=== PATIENT | female | born 1960 | race Hispanic/Latino ===

== ENCOUNTER → 2017-08-12 | Outpatient (CLI) | payer OTHER ==
[~2017-08-12] MED LIST: METOPROLOL SUCC50 MG PO
--- NOTE | 2017-08-24 08:25 | Diagnostic Imaging Report ---
#[id number] - MGSCRBIL #BILATERAL FIRST EVER DIGITAL SCREENING MAMMOGRAM WITH CAD: 08/12/2017 CLINICAL: Routine screening. Baseline exam. No prior exams were available for comparison. Current study contains 6 films. There are scattered fibroglandular elements in both breasts. Current study was also evaluated with a Computer Aided Detection (CAD) system. There are benign calcifications in both breasts. No significant masses, calcifications, or other findings are seen in either breast. IMPRESSION: BENIGN There is no mammographic evidence of malignancy. A 1 year screening mammogram is recommended. The patient will be notified by letter of the results. Dov [place]y reyes/feliberto:08/23/2017 12:35:04 [place] Supervisor: Leann WOLF)(M), [facility] letter sent: Normal Exam Mammogram BI-RADS: 2 Benign
== END ==
LOC: MAMMO 10:20
PROVIDERS: ATTEND Internal Medicine
DX: Z12.31 Encounter for screening mammogram for malignant neoplasm of breast (principal)
CPT/HCPCS: 77067

== ENCOUNTER → 2017-09-08 | Outpatient (CLI) | payer OTHER ==
--- NOTE | 2017-09-08 10:23 | Diagnostic Imaging Report ---
PROCEDURE: X-RAY CHEST, TWO VIEWS COMPARISON: None. INDICATIONS: COUGH FINDINGS: LUNGS: No consolidations or edema. PLEURA: No effusions or pneumothorax. HEART \T\ MEDIASTINUM: The heart is within normal size-limits. BONES \T\ SOFT TISSUES: No acute findings. CONCLUSION: No acute thoracic abnormality. Dov Harrington D.O. Dictated by: Dov Harrington D.O. on 09/08/2017 at 10:23 Electronically approved by: Dov Harrington D.O. on 09/08/2017 at 10:23
--- NOTE | 2017-09-08 10:57 | Diagnostic Imaging Report ---
PROCEDURE:X-RAY PARANASAL SINUSES, LIMITED COMPARISON:None. INDICATIONS:SINUS PAIN/PRESSURE FINDINGS: The paranasal sinuses are clear. No fluid levels are identified. No expansile or destructive osseous lesions are seen. No evidence of fracture. CONCLUSION: No radiographic evidence sinusitis. Dov Harrington D.O. Dictated by: Dov Harrington D.O. on 09/08/2017 at 10:57 Electronically approved by: Dov Harrington D.O. on 09/08/2017 at 10:57
== END ==
LOC: RAD 09:10
PROVIDERS: ATTEND Internal Medicine
DX: R05 Cough (principal)
CPT/HCPCS: 70210; 71046

== ENCOUNTER → 2017-12-01 | Outpatient (CLI) | payer OTHER ==
--- NOTE | 2017-12-01 10:48 | Diagnostic Imaging Report ---
PROCEDURE:HAND RIGHT 3 VIEWS AP \T\ LAT COMPARISON:None. INDICATIONS:JOINT PAIN FINDINGS: No acute, displaced fracture or dislocation. Joint spaces are well-maintained. Soft tissues are unremarkable. CONCLUSION: Unremarkable right hand radiographs. Dictated by: Jonh Magdaleno M.D. on 12/01/2017 at 10:50 Electronically approved by: Jonh Magdaleno M.D. on 12/01/2017 at 10:50
== END ==
LOC: RAD 09:36
PROVIDERS: ATTEND Internal Medicine
DX: M25.541 Pain in joints of right hand (principal); M06.9 Rheumatoid arthritis, unspecified

== ENCOUNTER 2018-07-29 18:36 | Inpatient (IN) | payer OTHER ==
[~2018-07-29] VITALS: Ht 152.4 cm; Wt 83.3 kg
--- OUTSIDE RECORDS SUMMARY | 2018-07-29 18:38 | XMS REPORT ---
Author Author [facility] Address Unknown Phone Unavailable Care Team Providers Care Interventional Radiology Technologist Name Role Phone SAMANTHA KAUR Unavailable Unavailable Problems This patient has no known problems. Allergies, Adverse Reactions, Alerts This patient has no known allergies or adverse reactions. Medications This patient has no known medications. Results Test Description Test Time Test Comments Text Results Atomic Results Result Comments HAND 3+ VIEWS RIGHT [place] [address] Patient Name: HEIDI BOWLES MR #: [id number] : 1960 Age/Sex: 57/F Req #: [id number] [facility] Physician: Ordered by: SAMANTHA KAUR MD Report #: [id number] Location: [facility] Room/Bed: Procedure: [id number] DX/HAND 3+ VIEWS RIGHT Exam Date: 12/01/17 Exam Time: 0950 REPORT STATUS: Signed PROCEDURE: HAND RIGHT 3 VIEWS AP T LAT COMPARISON: None. INDICATIONS: JOINT PAIN FINDINGS: No acute, displaced fracture or dislocation. Joint spaces are well-maintained. Soft tissues are unremarkable. CONCLUSION: Unremarkable right hand radiographs. Dictated by: Hyun Uriostegui M.D. on 12/01/2017 at 10:50 Electronically approved by: Hyun Uriostegui M.D. on 12/01/2017 at 10:50 Dictated By: HYUN URIOSTEGUI MD 1050 Transcribed By: JOHANA on 12/01/17 105 COPY TO: SAMANTHA KAUR MD CHEST 2 VIEWS [place] [address] Patient Name: HEIDI BOWLES MR #: [id number] : 1960 Age/Sex: 57/F Req #: [id number] Adm Physician: Ordered by: SAMANTHA KAUR MD Report #: [id number] Location: [facility] Room/Bed: Procedure: [id number] DX/CHEST 2 VIEWS Exam Date: 09/08/17 Exam Time: 0940 REPORT STATUS: Signed PROCEDURE: X-RAY CHEST, TWO VIEWS COMPARISON: None. INDICATIONS: COUGH FINDINGS: LUNGS: No consolidations or edema. PLEURA: No effusions or pneumothorax. HEART T MEDIASTINUM: The heart is within normal size-limits. BONES T SOFT TISSUES: No acute findings. CONCLUSION: No acute thoracic abnormality. Zulay Harrington D.O. Dictated by: Zulay Harrington D.O. on 09/08/2017 at 10:23 Electronically approved by: Zulay Harrington D.O. on 09/08/2017 at 10:23 Dictated By: ZULAY HARRINGTON DO 1023 Transcribed By: JOHANA on 09/08/17 1023 COPY TO: SAMANTHA KAUR MD SINUSES (PARANASAL)<3 VIEWS [place] [address] Patient Name: HEIDI BOWLES MR #: [id number] : 1960 Age/Sex: 57/F Req #: [id number] Adm Physician: Ordered by: SAMANTHA KAUR MD Report #: [id number] Location: RAD Room/Bed: Procedure: [id number] DX/SINUSES (PARANASAL)<3 VIEWS Exam Date: 09/08/17 Exam Time: 939 REPORT STATUS: Signed PROCEDURE: X-RAY PARANASAL SINUSES, LIMITED COMPARISON: None. INDICATIONS: SINUS PAIN/PRESSURE FINDINGS: The paranasal sinuses are clear. No fluid levels are identified. No expansile or destructive osseous lesions are seen. No evidence of fracture. CONCLUSION: No radiographic evidence sinusitis. Zulay Harrington D.O. Dictated by: Zulay Harrington D.O. on 09/08/2017 at 10:57 Electronically approved by: Zulay Harrington D.O. on 09/08/2017 at 10:57 Dictated By: ZULAY HARRINGTON DO 56 Transcribed By: JOHANA on 09/08/17 1057 COPY TO: SAMANTHA KAUR MD MAMMOGRAPHY DIGITAL SCR [place] [address] Patient Name: HEIDI AZUL MR #: [id number] : 1960 Age/Sex: 57/F Req #: [id number] Adm Physician: Ordered by: SAMANTHA KAUR MD Report #: [id number] Location: MAMMO Room/Bed: Procedure: [id number] MG/MAMMOGRAPHY DIGITAL SCR BILAT Exam Date: 08/12/17 Exam Time: 1055 REPORT STATUS: Signed #[id number] - MGSCRBIL #BILATERAL FIRST EVER DIGITAL SCREENING MAMMOGRAM WITH CAD: 08/12/2017 CLINICAL: Routine screening. Baseline exam. No prior exams were available for comparison. Current study contains 6 films. There are scattered fibroglandular elements in both breasts. Current study was also evaluated with a Computer Aided Detection (CAD) system. There are benign calcifications in both breasts. No significant masses, calcifications, or other findings are seen in either breast. IMPRESSION: BENIGN There is no mammographic evidence of malignancy. A 1 year screening mammogram is recommended. The patient will be notified by letter of the results. Zulay reyes/rolando:08/23/2017 12:35:04 Astronomy Department Chair: Leann LINDSAY([place])(M), [facility] letter sent: Normal Exam Mammogram BI-RADS: 2 Benign Dictated By: ZULAY HARRINGTON DO 1235 Transcribed By: ROLANDO on 08/23/17 1235 COPY TO: SAMANTHA KAUR MD
[2018-07-29] MEDS ORDERED: SODIUM CHLORIDE 0.9% 1000ML 1,000 ML IV STA (19:55)
[2018-07-29] MEDS ORDERED: ASPIRIN 81 MG CHEW TAB PO ONE (20:00)
[2018-07-29] MEDS ORDERED: ACETAMINOPHEN 1000 MG/100 ML IV ONE (20:53)
[2018-07-29 21:21] LABS: BILIRUBIN,URINE NEGATIVE (NEGATIVE); CLARITY,URINE SL CLOUDY (CLEAR); COLOR,URINE YELLOW (YELLOW); KETONES,URINE 1+ (NEGATIVE); LEUKOCYTE ESTERASE ,URINE NEGATIVE (NEGATIVE); NITRITE,URINE NEGATIVE (NEGATIVE); PROTEIN,URINE DIPSTICK TRACE (NEGATIVE); URINE UROBILINOGEN 1 mg/dL (0.2 - 1)
[2018-07-29 21:27] LABS: AMORPHOUS SEDIMENT,URINE FEW (FEW); BACTERIA,URINE MODERATE /HPF; EPITHELIAL CELLS,URINE MODERATE /LPF; MUCUS,URINE FEW (RARE); WBC,URINE (MAN) 0-5 /HPF (0-5)
--- NOTE | 2018-07-29 21:28 | Diagnostic Imaging Report ---
EXAM: CHEST SINGLE (PORTABLE), AP 1 view INDICATION: Pain from leg up to chest and head COMPARISON: None FINDINGS: LINES/TUBES: None LUNGS: No consolidations or edema. PLEURA: No effusions or pneumothorax. HEART AND MEDIASTINUM: Normal size and contour. BONES AND SOFT TISSUES: No acute findings. IMPRESSION: No acute thoracic abnormality. Signed by: Dr. No Dang M.D. on 07/29/2018 9:25 PM
[2018-07-29 21:44] LABS: STREPTOCOCCUS GRP A ANTIGEN NEGATIVE (NEGATIVE)
[2018-07-29 22:03] LABS: BASOPHILS % 0.3 % (0.0-1.0); EOSINOPHILS % 0.5 % (0.0-6.0); HEMATOCRIT 35.1 % (34.2-44.1); HEMOGLOBIN 11.6 g/dL (12.0-16.0); LYMPHOCYTES # (AUTO) 1.6 (1.0-3.2); LYMPHOCYTES % 21.3 % (18.0-39.1); MEAN CORPUSCULAR HEMOGLOBIN 28.4 pg (28-32); MONOCYTES # (AUTO) 0.6 (0.2-0.8); MONOCYTES % 7.6 % (4.4-11.3); NEUTROPHILS % 66.3 % (38.7-80.0); PLATELET COUNT 209 x10e3/uL (140-360); RED BLOOD COUNT 4.08 x10e6/uL (3.6-5.1); RED CELL DISTRIBUTION WIDTH 13.9 % (11.7-14.4)
[2018-07-29 22:09] LABS: INR 1.03; PROTHROMBIN TIME 14.4 seconds (11.9-14.5)
[2018-07-29 22:10] LABS: PARTIAL THROMBOPLASTIN TIME 34.8 seconds (23.8-35.5)
[2018-07-29 22:13] LABS: INFLUENZAE A&B ANTIGEN (RAPID) NEGATIVE (NEGATIVE)
[2018-07-29 22:19] LABS: ALANINE AMINOTRANSFERASE 21 IU/L (0-55); ALBUMIN/GLOBULIN RATIO 0.8 (0.8-2.0); ALKALINE PHOSPHATASE 70 IU/L (40-150); ANION GAP 13.8 mmol/L (8-16); BLOOD UREA NITROGEN 10 mg/dL (7-26); BUN/CREATININE RATIO 17 (6-25); CALCIUM 8.7 mg/dL (8.4-10.2); CARBON DIOXIDE 23 mmol/L (22-29); CHLORIDE 100 mmol/L (98-107); CREATINE KINASE 23 IU/L (29-168); CREATININE, SERUM 0.59 mg/dL (0.57-1.11); EST GLOMERULAR FILTRATION RATE > 60 ML/MIN (60-); GLUCOSE 110 mg/dL (74-118); MAGNESIUM 1.6 MG/DL (1.3-2.1); POTASSIUM 3.8 mmol/L (3.5-5.1); SODIUM 133 mmol/L (136-145)
[2018-07-29 22:31] LABS: BAND NEUTROPHILS % (MANUAL) 1 %; LYMPHOCYTES % (MANUAL) 16 % (19-48); MONOCYTES % (MANUAL) 8 % (3.4-9.0); NEUTROPHILS % (MANUAL) 73 % (40-74)
[2018-07-29 22:32] LABS: PLATELET ESTIMATE ADEQUATE; PLATELET MORPHOLOGY COMMENT NORMAL; RBC MORPHOLOGY COMMENT NORMAL
--- NOTE | 2018-07-29 23:35 | Diagnostic Imaging Report ---
EXAMINATION: Head CT without contrast. HISTORY:Headache and dizziness. COMPARISON:None. TECHNIQUE: Multidetector axial images were obtained from the foramen magnum to the vertex without contrast. The images were reconstructed using brain and bone algorithms. Thin section brain images were reformatted into coronal and sagittal planes. Dose modulation, iterative reconstruction, and/or weight based adjustment of the mA/kV was utilized to reduce the radiation dose to as low as reasonably achievable. Intravenous contrast: None IMAGE QUALITY: Acceptable. FINDINGS: Skull/scalp: No lytic or blastic. lesions. No surgical changes. Parenchyma: Nonspecific bilateral frontoparietal patchy white matter hypodensity are likely related to small vessel ischemic changes. No acute hemorrhage, mass or acute major vascular territorial infarct. Arteries: No density suggestive of thrombosis. Dural sinuses: No abnormal density suggestive of thrombosis. Ventricles: No hydrocephalus or displacement. Extra-axial spaces: No abnormal density. Brain volume: Normal for age. Craniocervical junction: No mass, Chiari malformation, or basilar invagination. Sella: No mass. Paranasal/mastoid sinuses: Imaged portions unremarkable. IMPRESSION: No acute intracranial abnormality. Moderate supratentorial white matter microvascular ischemic changes. Signed by: Dr. Lyla Morgan M.D. on 07/29/2018 11:31 PM
[2018-07-30] VITALS (7 sets, daily range): BP systolic 128–169; BP diastolic 63–93
--- NOTE | 2018-07-30 00:02 | Diagnostic Imaging Report ---
EXAM: CTA ABD/PELVIS, CTA CHEST INDICATION: Left leg and hip pain that radiates to her left flank and left side of chest and head COMPARISON: None TECHNIQUE: Multi-detector CT technology was employed using low dose techniques. CTA of the chest, abdominal and pelvis was performed after the administration of IV contrast. For optimization of anatomic evaluation, multiplanar reconstruction 3-D off-line postprocessing were performed. IV Contrast: 100 cc SMV 370 Oral Contrast: None Findings: Chest: The lungs are clear. No pleural effusions or pneumothorax. The heart is within normal size limits. Calcifications versus valve replacement around the mitral valve. No mediastinal mass or lymphadenopathy. Abdomen: Normal appearance of the liver, gallbladder, pancreas, spleen, adrenal glands and kidneys. Small hiatal hernia. Normal appearance of the small and large bowel. Respiratory artifact across the mid abdomen. Pelvis: The bladder is decompressed by a Johnson catheter. The uterus and ovaries are not visualized. Soft tissues and bones: Bilateral buttock injection sites. No acute bone findings. Vessels: Mild calcified atherosclerotic plaque of the thoracic aortic arch. No aortic dissection flap or aneurysm. Mild atherosclerotic plaque of the abdominal aorta. The celiac, superior mesenteric artery, bilateral single renal arteries and inferior mesenteric artery are patent without significant stenosis. Normal pelvic vasculature. IMPRESSION: Normal CTA of the chest, abdomen and pelvis. No aortic aneurysm or dissection. Signed by: Dr. No Dang M.D. on 07/29/2018 11:59 PM
[2018-07-30] MEDS ORDERED: ONDANSETRON HCL INJ 2MG/ML 2ML 2 MG/ML VIAL IV STA (00:22)
[2018-07-30] MEDS ORDERED: KETOROLAC TROMETHAMINE 30 MG/ML VIAL IV STA (00:29)
[2018-07-30] MEDS ORDERED: SODIUM CHLORIDE 0.9% 1000ML 1,000 ML IV STA (00:29)
--- NOTE | 2018-07-30 00:58 | Diagnostic Imaging Report ---
EXAM: KNEE LEFT THREE VIEWS, AP, lateral and oblique INDICATION: Left knee pain COMPARISON: None FINDINGS: BONES: No acute fractures. JOINTS: No malalignment. SOFT TISSUES: Large suprapatellar joint effusion. IMPRESSION: Large suprapatellar joint effusion without evidence of fracture. Signed by: Dr. No Dang M.D. on 07/30/2018 12:54 AM
[2018-07-30] MEDS ORDERED: KETOROLAC TROMETHAMINE 30 MG/ML VIAL ONE (00:59)
[2018-07-30] MEDS ORDERED: ONDANSETRON HCL INJ 2MG/ML 2ML 2 MG/ML VIAL ONE (00:59)
[2018-07-30] MEDS ORDERED: SODIUM CHLORIDE 0.9% 100 ML 100 ML ONE (01:56)
[2018-07-30] MEDS ORDERED: IOPAMIDOL 370 MG/ML 200 ML INFUS..BTL INJ ONE (01:56)
[2018-07-30] MEDS ORDERED: ONDANSETRON HCL INJ 2MG/ML 2ML 2 MG/ML VIAL IV PRN (02:15)
[2018-07-30] MEDS ORDERED: PANTOPRAZOLE SO40 MG PO (03:16)
[2018-07-30] MEDS ORDERED: SUCRALFATE1 GM PO (03:16)
[2018-07-30] MEDS ORDERED: CRESTOR10 MG PO (03:16)
--- NOTE | 2018-07-30 03:48 | NUR ---
Received report from ER nurse. Patient arrived to floor via stretcher. Patient telugu speakingwith daughter at bedside to translate.
[2018-07-30] MEDS: SODIUM CHLORIDE 0.9% 1000ML 1,000 ML IV SCH ×4 (04:30→22:12)
[2018-07-30] MEDS: HYDROCODONE/APAP 5MG-325MG TAB PO PRN ×3 (04:55→17:19)
--- NOTE | 2018-07-30 06:00 | NUR ---
Patient admit and assessment completed.
[2018-07-30 07:42] LABS: CREATINE KINASE MB 0.4 ng/mL (0-5.0)
--- NOTE | 2018-07-30 08:40 | NUR ---
SPOKE WITH MD MENDOZA, AWARE OF CONSULT, ORDERS NOTED
--- NOTE | 2018-07-30 09:31 | NUR ---
MD MAC'S EMPLOYMENT COORDINATOR ALONDRA INTO SEE PT, DISCUSSED POC
--- NOTE | 2018-07-30 12:13 | NUR ---
CONSULTATION - ORTHOPEDICS Mireille is a 58 year old indonesian speaking community ambulating female who presented to the ED with complaints of myalgias, chest pain and left knee pain that started yesterday without incident of trauma. She states she has had fevers since her pain. She denies any numbness, paresthesias or loss of distal motor function. She states the pain is globally around the knee and has been unable to move it and ambulate on it. No prior history of any trauma or injuries to the knee. 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 Motor+ EHL, FHL, TA, G/S Sensation grossly intact Pulses + DP, Post tib Compartments soft Negative calf tenderness WBC 7.47, Hgb 11.6 Hct 35.1, Plt 209 INR 1.03 D-Dimer 0.47 ESR 62 Xrays demonstrate 3 views of the left knee with no fracture, dislocation, or significant degenerative changes. Is a round ossification at the distal patella r tendon region 58 year old female with left knee effusion, pain and subjective fevers Due to the concern for a septic knee, the left knee was cleaned and prepped for an aspiration after consent was obtained. The left knee was aspirated and provided 70 cc of synovial-sanginous fluid. No gross purulence. The patient felt improved pain. A compressive dressing was applied. Fluid sent for cell count with differential, crystals, culture, gram stain and glucose. Patient tolerated the procedure well. Follow up aspiration labs Analgesics as needed NPO except meds Hold anticoaguation/DVT prophylaxis If lab come back positive for septic knee, will required I&D Follow up read on DVT Ultrasound FU CRP Patient and family aware and amendable to plan. All questions answered. DO S[facility]
[2018-07-30 12:53] LABS: BODY FLUID APPEARANCE SL.CLOUDY; BODY FLUID COLOR YELLOW; BODY FLUID TYPE SYNOVIAL
[2018-07-30 12:57] LABS: RBC,BODY FLUID 3841 cells/uL; WBC,BODY FLUID 3287 cells/uL
[2018-07-30 13:05] LABS: LYMPHOCYTES,BODY FLUID 20 %; MONO/MACROPHG,BODY FLUID 14 %; NEUTROPHILS,BODY FLUID 66 %
--- NOTE | 2018-07-30 13:26 | NUR ---
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 CM/SW role and care transitions discussed. Anticipated discharge plan discussed along with duration of care. CM/SW discussed patients right to make decisions in care. CM/SW work hours given. Patient lives: IN OWN HOUSE WITH FAMILY Admit/Transfer: VIA ED FROM HOME POA/Emergency contact: DAUGHTER CLAYTON [phone] Current/Previous Home Health: NONE PCP/Follow-up Care: Abigail POE Current/Previous DME:NONE Other Services: NONE Employment Status: RETIRED Areas of Concerns: NONE Referral Needs: NONE Education Needs: NONE IMM/ORTIZ given and signed (if applicable): NA Goal for discharge: RETURN HOME CM/SW left business card at the bedside with contact information. Name and number was also written on the patients whiteboard. Patient verbalized understanding of discussion. CM will follow-up with ongoing discharge and transition of care needs.
--- NOTE | 2018-07-30 14:22 | NUR ---
PROGRESS NOTE - Orthopedics Upon further questioning, patient states that she recently had the flu two weeks ago. Left knee feeling much better after aspiration Left Knee Able to flex knee to 80 degrees, pain with forced extension Lateral > Medial joint line tenderness Positive Chelsey Negative Varus/Valgus Stress Test at full extension at 30 deg of flexion, non-painful Aspiration values WBC 3287, Neutrophils 66%, Fluid glucose 63 58 year old F with left knee pain and effusion Follow up MRI of left knee to evaluate for meniscal tear At this time, there is a mixed picture regarding her knee. The knee effusion could be secondary to inflammatory arthropathy over infectious. As long as she remains stable, we will continue to wait for gram stain, culture and crystals Follow up CRP Follow up CBC in am DO S[facility]NEY [facility]
[2018-07-30] MEDS ORDERED: METHYLPREDNISOLONE SOD SUCC 40 MG/ML VIAL 1ML IV ONE (15:30)
[2018-07-30 16:09] LABS: CREATINE KINASE 14 IU/L (29-168)
[2018-07-30] MEDS ORDERED: SODIUM CHLORIDE 0.9% 250ML 250 ML ONE (16:46)
--- NOTE | 2018-07-30 16:58 | Diagnostic Imaging Report ---
TECHNIQUE: Magnetic resonance imaging of the LEFT KNEE was performed WITHOUT injected contrast. HISTORY: Pain, fever, additional history provided of aspiration earlier today. COMPARISON: Left knee radiograph July 30, 2018 FINDINGS: LIGAMENTS AND TENDONS: ACL: Intact PCL: Intact Collateral ligaments: Intact Iliotibial band: Unremarkable Popliteal tendon: Intact Extensor mechanism: Intact JOINT: Menisci: Medial: Intact Lateral: Intact Articular Cartilage: Medial Compartment: Low-grade erosion of the weightbearing cartilage. Lateral Compartment: No focal defect. Patellofemoral Compartment: High-grade to full-thickness erosions at the patellar apex and adjacent lateral facet. Joint Fluid: Moderate nonspecific joint effusion with synovitis and a partially distended Castelan's cyst. Fluid extending from the Castelan cyst inferiorly along the superior margin of the medial head of the gastrocnemius. BONES: No focal or infiltrative bone marrow replacing abnormality. No acute fracture. SOFT TISSUES: Periarticular soft tissue edema. No abscess. IMPRESSION: 1. A nonspecific arthritis, consider septic arthropathy in the provided setting of fever or crystalline arthropathy, especially CPPD. Advise correlation with result of the recent knee aspiration. 2. Ruptured and partially decompressed Castelan's cyst. 3. Patellofemoral compartment predominant osteoarthrosis. Discussed with the patient's nurse (Jia Toth) via phone on July 30, 2017 at 1653. The provider verbalizes an understanding and states she will relay the information to Drs. Sood and Mauricio. Signed by: Dr. Bolivar Galeana D.O., M.M.M. on 07/30/2018 4:55 PM
[2018-07-30] MEDS ORDERED: COLCHICINE 0.6 MG TAB PO SCH (17:00)
[2018-07-30] MEDS: CEFTRIAXONE SOD 1 GM/NS 50 ML 50 ML IV SCH (17:00)
[2018-07-30] MEDS ORDERED: METHYLPREDNISOLONE SOD SUCC 40 MG/ML VIAL 1ML ONE (17:04)
[2018-07-30] MEDS: SUCRALFATE 1 GM TAB PO SCH (17:17)
--- NOTE | 2018-07-30 17:31 | NUR ---
SPOKE WITH MD ANA STEARNS RADIOLOGIST, STATES MRI RESULTS ARE INFECTION VS PSEUDOGOUT, TELEPHONED MD Ramin POE TO MAKE AWARE, SPOKE WITH ADOLFO , AWAITING CALL TRA
--- NOTE | 2018-07-30 17:34 | NUR ---
SPOKE WITH Ramin POE,
--- NOTE | 2018-07-30 17:36 | NUR ---
SPOKE WITH MD MENDOZA, MADE AWARE OF MRI RESULTS AND WHAT Ramin POE HAS ORDERED MEDICATION [place], MD MENDOZA OKAY WITH CURRENT ORDERS
--- NOTE | 2018-07-30 18:04 | History and Physical ---
HISTORY OF PRESENT ILLNESS: She is a 58-year-old female, patient of Dr. Bry Kang, presented to the emergency room with complaint of severe left-sided knee pain and patient had become completely un-ambulatory. Patient is not able to put weight and patient was having severe pain. Patient was in distress. She was having a chest pain and she was feeling she actually is going to passed out and has dizziness and shortness of breath. The patient had came to the emergency room with above complaint and patient has history of hypertension, but her blood pressure was low. Patient was short of breath and weak. REVIEW OF SYSTEMS: As per history of present illness. Patient has a more severe left knee pain, 04/20. PAST MEDICAL HISTORY: Hypertension, hyperlipidemia. ALLERGIES: NO KNOWN DRUG ALLERGIES. SOCIAL HISTORY: Denies smoking. Denies using alcohol. FAMILY HISTORY: Hypertension and hyperlipidemia. MEDICATIONS: See from the list. PHYSICAL EXAMINATION GENERAL: She is a middle-aged female patient, lying in bed, not in any acute distress. VITALS: Temperature 100.3, pulse rate 73, respiration rate 18, blood pressure 140/90. HEENT: Normocephalic and atraumatic. NECK: No JVD. No lymphadenopathy. LUNGS: Bilateral equal fair air entry. No rales. No rhonchi. NEUROLOGICAL: No focal neurological deficits. EXTREMITIES: Left knee severe swelling. ADMITTING IMPRESSION/DIAGNOSES: Left knee effusion suspect left knee septic arthritis with fever in syncopal patient. Patient has chest pain, dizziness, hypertension, hyperlipidemia, and also urinary tract infection. Orthopedic evaluation was done and arthrocentesis was done and 60 mL yellowish clear fluid was taken out. Patient is getting MRI of the right knee. Patient will be treated with IV antibiotic Rocephin and will give patient colchicine and IV steroid. PT/OT evaluation. Further treatment course as per MRI of the knee. Patient to be admitted under service of Dr. Kang. Job#: [id number] HEIDI
--- NOTE | 2018-07-30 18:54 | Consultation ---
DATE OF CONSULTATION: CARDIOLOGY CONSULTATION CONSULTING PHYSICIAN: Dr. Will Sood. REASON FOR CONSULTATION: Abnormal EKG. HISTORY OF PRESENT ILLNESS: Ms. Sanchez is a 58-year-old female that has been reported to have been in good health up until a couple days ago where she developed acute onset of left lower extremity pain and also swelling and was unable to walk. Yesterday for this reason, her family member brought her to the ER. She also reports some diarrhea prior to admission that had been ongoing for a couple of days. At this moment, she remains to have some pain in her left lower extremity and also the swelling persists and she is unable to still move or bend the leg at this point. She denies any chest pain, any shortness of breath, palpitations, dizziness, vertigo, dysuria, constipation, or abdominal pain. PAST MEDICAL HISTORY: Includes hypertension, hyperlipidemia, and fatty liver. PAST SURGICAL HISTORY: Partial hysterectomy. FAMILY HISTORY: Noncontributory. ALLERGIES: PER ELECTRONIC CHART. REVIEW OF SYSTEMS: Negative except as mentioned above. PHYSICAL EXAM VITAL SIGNS: Temperature 100.3, pulse 73, respiratory rate 18, blood pressure 144/92, oxygen saturation 99% on room air. GENERAL: Alert and oriented x3, resting comfortably in bed. Does not appear to be in any acute distress. NECK: Supple. No JVD noted. LUNGS: Clear to auscultation throughout. No wheezing. No rhonchi or crackles. CARDIOVASCULAR: Regular rate and rhythm. Normal S1 and S2. No murmurs. No gallops. ABDOMEN: Soft, nontender. Normoactive bowel sounds. EXTREMITIES: Left lower extremity around the knee is warm and tender to the touch. 2+ nonpitting edema to the left lower extremity. 2+ pedal pulses bilaterally. LABS: WBC 7.47, hemoglobin 11.6, platelets 209. Knee x-ray with a large suprapatellar joint effusion without evidence of any fracture. CT of the chest, abdomen and pelvis normal with no aortic aneurysm or dissection. CT of the brain with moderate supratentorial white matter microvascular ischemic changes. Chest x-ray with no acute thoracic abnormalities. TELEMETRY: Sinus rhythm. EKG on admission with ST elevation noted only on V2, nothing else noted on any other leads. IMPRESSION 1. Left knee effusion. 2. Knee pain. 3. Abnormal EKG. 4. Hypertension. 5. Hyperlipidemia. RECOMMENDATIONS: Maintain this patient on telemetry. Pain management per primary team. Obtain an echocardiogram today. This patient will need a stress test. This may be done as an outpatient. Patient with risks factors including age and also hypertension; however, cardiac enzymes at this time remains to the normal. Patient will may proceed with surgical intervention of the left knee at this point and we will schedule ischemic workup and a stress test as an outpatient. We will continue to follow this patient very closely. Thank you very much for this consultation. Dictated by: Lin Kern NP Job#: [id number] RTY
--- NOTE | 2018-07-30 19:43 | NUR ---
Received change of shift report from Am nurse. Walking rounds completed.
[2018-07-30] MEDS: COLCHICINE 0.6 MG TAB PO SCH (21:00)
[2018-07-31] VITALS (7 sets, daily range): BP systolic 136–177; BP diastolic 66–104
--- NOTE | 2018-07-31 | NUR ---
Patient c/o EISENBERG. Meds given as ordered.
--- NOTE | 2018-07-31 05:00 | NUR ---
Patient resting quitly with no c/o pain or discomfort. Continue monitor.
[2018-07-31] MEDS: ACETAMINOPHEN 325 MG TAB PO PRN (05:35)
[2018-07-31 06:16] LABS: BASOPHILS % 0.1 % (0.0-1.0); HEMATOCRIT 32.5 % (34.2-44.1); HEMOGLOBIN 10.7 g/dL (12.0-16.0); LYMPHOCYTES # (AUTO) 1.2 (1.0-3.2); LYMPHOCYTES % 15.8 % (18.0-39.1); MEAN CORPUSCULAR HEMOGLOBIN 28.2 pg (28-32); MEAN CORPUSCULAR HGB CONC 32.9 g/dL (31-35); MEAN CORPUSCULAR VOLUME 85.5 fL (81-99); MONOCYTES # (AUTO) 0.4 (0.2-0.8); MONOCYTES % 5.9 % (4.4-11.3); NEUTROPHILS # (AUTO) 5.4 (2.1-6.9); NEUTROPHILS % 72.8 % (38.7-80.0); PLATELET COUNT 218 x10e3/uL (140-360); RED CELL DISTRIBUTION WIDTH 13.9 % (11.7-14.4)
[2018-07-31 06:37] LABS: ALANINE AMINOTRANSFERASE 17 IU/L (0-55); ALBUMIN 2.5 g/dL (3.5-5.0); ALBUMIN/GLOBULIN RATIO 0.6 (0.8-2.0); ALKALINE PHOSPHATASE 62 IU/L (40-150); ANION GAP 10.7 mmol/L (8-16); BLOOD UREA NITROGEN 9 mg/dL (7-26); BUN/CREATININE RATIO 16 (6-25); CALCIUM 8.6 mg/dL (8.4-10.2); CARBON DIOXIDE 23 mmol/L (22-29); CHLORIDE 104 mmol/L (98-107); CREATININE, SERUM 0.58 mg/dL (0.57-1.11); EST GLOMERULAR FILTRATION RATE > 60 ML/MIN (60-); GLUCOSE 140 mg/dL (74-118); POTASSIUM 3.7 mmol/L (3.5-5.1); SODIUM 134 mmol/L (136-145)
[2018-07-31 06:48] LABS: CREATINE KINASE 15 IU/L (29-168)
[2018-07-31] MEDS: PANTOPRAZOLE SOD 40 MG TABEC PO SCH (08:30)
[2018-07-31 08:38] LABS: BAND NEUTROPHILS % (MANUAL) 2 %; LYMPHOCYTES % (MANUAL) 12 % (19-48); MONOCYTES % (MANUAL) 11 % (3.4-9.0); NEUTROPHILS % (MANUAL) 75 % (40-74); PLATELET ESTIMATE ADEQUATE; PLATELET MORPHOLOGY COMMENT NORMAL; RBC MORPHOLOGY COMMENT NORMAL
[2018-07-31] MEDS ORDERED: SIMVASTATIN 40 MG TAB PO SCH (09:00)
[2018-07-31] MEDS: METOPROLOL SUCCINATE 50 MG TAB XL PO SCH (10:00)
[2018-07-31] MEDS: SUCRALFATE 1 GM TAB PO SCH ×2 (10:00→17:00)
[2018-07-31] MEDS: COLCHICINE 0.6 MG TAB PO SCH ×2 (10:00→20:27)
[2018-07-31] MEDS: SODIUM CHLORIDE 0.9% 1000ML 1,000 ML IV SCH ×2 (10:13→15:00)
--- NOTE | 2018-07-31 11:39 | Progress Note ---
DATE: CARDIOLOGY PROGRESS NOTE SUBJECTIVE: Patient reports substernal chest pain this morning and also some occasional coughing. States that she is status post left knee joint effusion and fluid drainage with improvement of leg pain. Denies any palpitations or shortness of breath. OBJECTIVE VITAL SIGNS: Temperature 98.8, pulse 71, respiratory rate 19, blood pressure 137/71, oxygen saturation 97% on room air. GENERAL: Alert and oriented x3, resting comfortably in bed, daughter at the bedside. Does not appear to be in any acute distress. NECK: Supple. No JVD noted. LUNGS: Clear to auscultation throughout. No wheezing. No rhonchi or crackles. CARDIOVASCULAR: Regular rate and rhythm. Normal S1, S2. No murmurs. No gallops. ABDOMEN: Rounded, soft, nontender. Normoactive bowel sounds. LOWER EXTREMITIES: Left lower extremity knee with dressing and compression. Edema noted. 2+ pedal pulses bilaterally. CARDIOVASCULAR MEDICATIONS: Simvastatin 10 mg p.o. daily. LABS: WBC 7.42, hemoglobin 10.7, hematocrit 32.2, platelets 218. Sodium 134, potassium 3.7, BUN 9, creatinine 0.58, glucose 140, calcium 8.6. TELEMETRY: Sinus rhythm. IMPRESSION 1. Left knee effusion. 2. Knee pain. 3. Abnormal electrocardiogram with ST elevation noted on V2. 4. Hypertension. 5. Hyperlipidemia. 6. Atypical chest pain. RECOMMENDATIONS: Maintained this patient on telemetry. Lexiscan stress test. We will contact with hospital hopefully tomorrow. Obtain echocardiogram. Continue the above medications. Continue to follow patient very closely. Dictated by: Lin Kern NP Job#: [id number] ROSALIA
--- NOTE | 2018-07-31 12:08 | NUR ---
PROGRESS NOTE - ORTHOPEDICS Patient seen & examined resting comfortably at bedside with family near by. Patient states she is feeling better and has been able to ambulate better. No recent fevers or chills. No numbness, paresthesias or loss of distal motor function. T 98.8 HR 71 RR 19 BP 137/71, O2 97% Left Knee Dressing clean, dry and intact 0-60 able to straight leg raise Much improved with range of motion WBC 7.42, Hgb 10.7, Hct 32.5 Aspiration cell count: Fluid WBC 3287, RBC 3841, Neutrophil % 66, Glucose 63 CRP, Crystals, Aspiration Culture Pending Blood Culture: no growth @ 24 hrs MRI read by DO Kervin IMPRESSION: 1. A nonspecific arthritis, consider septic arthropathy in the provided setting of fever or crystalline arthropathy, especially CPPD. Advise correlation with result of the recent knee aspiration. 2. Ruptured and partially decompressed Castelan's cyst. 3. Patellofemoral compartment predominant osteoarthrosis. MRI demonstrates degenerative meniscus tear without bucket handle or gross deformity. Chondromalacia of patellofemoral joint 58 year old female with left knee pain and effusion. At this time appears to be more of an inflammatory arthropathy over infectious etiology. Continue to follow up Knee Aspiration and Blood labs Continue anti-inflammatories Recommend PT - WBAT Will continue to follow. Analgesics PRN DVT prophylaxis DO [facility]
--- NOTE | 2018-07-31 14:00 | NUR ---
MD Ramin POE INTO SEE PT, DISCUSSED POC
[2018-07-31] MEDS ORDERED: METHYLPREDNISOLONE SOD SUCC 40 MG/ML VIAL 1ML IV ONE (14:30)
[2018-07-31] MEDS: CEFTRIAXONE SOD 1 GM/NS 50 ML 50 ML IV SCH (15:30)
--- NOTE | 2018-07-31 19:19 | NUR ---
Received change of shift report from Am nurse. Walking rounds completed.
--- NOTE | 2018-07-31 19:54 | NUR ---
Patient AAOx3. [place] speaking with translater at bedside. Patient having heart cath. Will get consent signed for procedure. Patient aware of NPO after MN.
[2018-07-31] MEDS: SIMVASTATIN 20 MG TAB PO SCH (20:27)
[2018-07-31] MEDS: HYDROCODONE/APAP 5MG-325MG TAB PO PRN (20:28)
[2018-07-31] MEDS ORDERED: CLONIDINE HCL 0.1 MG TAB PO ONE (20:45)
--- NOTE | 2018-07-31 22:03 | NUR ---
Patient BP elevated . Called MD and received order from to treat. Meds given. Continue monitor. Patient of the floor for test.
[2018-08-01] VITALS (8 sets, daily range): BP systolic 115–173; BP diastolic 56–88
--- NOTE | 2018-08-01 05:07 | NUR ---
Patient resting quitly at this time. Continue monitor.
[2018-08-01 06:05] LABS: BASOPHILS % 0.2 % (0.0-1.0); EOSINOPHILS % 0.1 % (0.0-6.0); HEMOGLOBIN 10.1 g/dL (12.0-16.0); LYMPHOCYTES # (AUTO) 1.8 (1.0-3.2); LYMPHOCYTES % 20.8 % (18.0-39.1); MEAN CORPUSCULAR HEMOGLOBIN 28.1 pg (28-32); MEAN CORPUSCULAR HGB CONC 32.6 g/dL (31-35); MEAN CORPUSCULAR VOLUME 86.1 fL (81-99); MONOCYTES # (AUTO) 0.6 (0.2-0.8); MONOCYTES % 6.6 % (4.4-11.3); NEUTROPHILS # (AUTO) 5.9 (2.1-6.9); PLATELET COUNT 230 x10e3/uL (140-360)
[2018-08-01 06:58] LABS: LYMPHOCYTES % (MANUAL) 16 % (19-48); METAMYELOCYTES % (MANUAL) 2 % (0-0); MONOCYTES % (MANUAL) 10 % (3.4-9.0); MYELOCYTES % (MANUAL) 1 % (0-0); NEUTROPHILS % (MANUAL) 70 % (40-74)
[2018-08-01 06:59] LABS: HYPOCHROMASIA SLIGHT; PLATELET ESTIMATE ADEQUATE; PLATELET MORPHOLOGY COMMENT FEW LARGE; RBC MORPHOLOGY COMMENT NORMAL; SMUDGE CELLS FEW
--- NOTE | 2018-08-01 07:00 | NUR ---
SHIFT REPORT RECEIVED FROM EDGING MACHINE FEEDER RN WHILE ROUNDING. PT DENIES NEEDS AT THIS TIME.
[2018-08-01] MEDS: PANTOPRAZOLE SOD 40 MG TABEC PO SCH ×2 (07:30→08:20)
[2018-08-01] MEDS: SUCRALFATE 1 GM TAB PO SCH ×3 (08:00→16:37)
[2018-08-01] MEDS: METOPROLOL SUCCINATE 50 MG TAB XL PO SCH ×2 (08:21→08:28)
--- NOTE | 2018-08-01 10:10 | Consultation ---
DATE OF CONSULTATION: August 01, 2018 Ms. Sanchez is a 58-year-old female who was referred to me for evaluation of anemia and immature forms in the circulation. HISTORY OF PAST ILLNESSES: History of rheumatoid arthritis, being treated by a physician for the last 2 years at [place], history of left knee arthritis, Castelan's cyst, which was ruptured. SOCIAL HISTORY: Noncontributory. FAMILY HISTORY: Noncontributory. ALLERGIES: REPORTED NONE. MEDICATIONS: At this time: 1. Ceftriaxone. 2. Ondansetron. 3. Tylenol. 4. Metoprolol. 5. Protonix. 6. Carafate. 7. Simvastatin. REVIEW OF SYSTEMS HEENT: Normal. CARDIAC: History of hyperlipidemia. RESPIRATORY: Normal. GI: Normal. It has to be noted that the patient even though 58 years of age still did not have a colonoscopy. : Normal. MUSCULOSKELETAL: History of rheumatoid arthritis. PHYSICAL EXAMINATION GENERAL: A slightly obese female. No palpable adenopathy. HEART: Within normal limits. LUNGS: Clear. BREASTS: Normal. ABDOMEN: Obese. RECTAL: Vaginal examinations deferred. CENTRAL NERVOUS SYSTEM: Essentially normal. EXTREMITIES: There is spindling of the digits of the upper extremities. The patient does have swelling and warmth of the left knee joint. LABS: Shows a hemoglobin 10.1, hematocrit 31, white count of 8700, and platelets of 230,000. Indices are essentially normal. Sodium 134, potassium 3.7, chloride 74, CO2 23, BUN 9, creatinine 0.5, bilirubin 0.5, SGOT 15, SGPT 17, alkaline phosphatase 62. INR 1.03. Chest x-ray essentially normal. The patient also had an x-ray of the left knee and MRI, which showed ruptured Castelan's cyst and effusion. IMPRESSION 1. Anemia of chronic disease. 2. Monocytosis (10%). 3. Hyponatremia (133). 4. Hypoalbuminemia (3 and later 2.5). 5. Hyperglobulinemia (3.9). 6. Hypertension. 7. Hyperlipidemia. 8. High C-reactive protein of 105.4. 9. Arteriosclerosis by computerized tomography scan. 10. Left knee effusion. 11. Ruptured Castelan's cyst of the left knee. 12. Possible septic left knee joint. 13. History of rheumatoid arthritis. PLAN, COMMENTS AND SUGGESTIONS: The anemia is of anemia of chronic disease consistent with history of rheumatoid arthritis. For main causes of anemia of chronic disease are rheumatoid arthritis, hypothyroidism, chronic renal failure, and underlying malignancy. I will observe the anemia in this patient. No hematological intervention, including a bone marrow is required at this time. Quantitation of immunoglobulins is suggested as usually rheumatoid arthritis is either IgG or an antibody to IgG, which could be IgG or IgM. ESR is suggested. Thank you very much for allowing me to participate in the management of this patient. Job#: [id number] ND
[2018-08-01] MEDS ORDERED: REGADENOSON 0.4 MG/5 ML SYR IV ONE (10:41)
--- NOTE | 2018-08-01 11:00 | NUR ---
PT OFF THE UNIT TO [facility].
--- NOTE | 2018-08-01 15:07 | NUR ---
PT OFF THE FLOOR TO [facility] FOR SECOND HALF.
[2018-08-01] MEDS: CEFTRIAXONE SOD 1 GM/NS 50 ML 50 ML IV SCH (16:36)
--- NOTE | 2018-08-01 17:37 | NUR ---
PROGRESS NOTE - ORTHOPEDICS Patient seen and examined while laying comfortably at bedside. Patient states her knee feels much better and has been able to increase range of motion and weight bearing. Denies any recent fevers or chills. No numbness, paresthesias or loss of distal motor function. VS 98.5 HR 64 RR 19, BP 173/88 O2 98 Left knee - dressing clean, dry and intact Knee - decreased swelling No pain with PROM No erythema or warmth Able to straight leg raise with improved strength Motor EHL, FHL, TA, G/S Sensation grossly intact Pulses + DP, Post tib Compartments soft Negative calf tenderness WBC 8.7 Hgb 10.1, Hct 31.0 ESR 70 Aspiration Cultures - no growth to date Crystals Pending, reached out to lab still awaiting results 58 year old female with left knee pain and effusion likely from inflammatory arthropathy Continue anti-inflammatories PT WBAT FU pending labs At this time the patient is doing much better. In case her course changes, we will wash her knee out. Analgesics PRN DVT Prophylaxis DO [facility]
[2018-08-01] MEDS: SIMVASTATIN 20 MG TAB PO SCH (20:44)
[2018-08-02] VITALS (8 sets, daily range): BP systolic 134–189; BP diastolic 72–96
--- NOTE | 2018-08-02 00:20 | Progress Note ---
DATE: August 01, 2018 CARDIOLOGY PROGRESS NOTE SUBJECTIVE: A stress test today which was normal. OBJECTIVE VITAL SIGNS: Temperature 98.7, pulse 64, respiratory rate 18, blood pressure 117/64, and satting 96% on nasal cannula. GENERAL: female, pleasant, no acute distress. CARDIOVASCULAR: Regular rate and rhythm. No murmurs, rubs, or gallops. LUNGS: Clear to auscultation bilaterally. ABDOMEN: Soft, nontender, and nondistended. NEURO AND PSYCH: Alert and oriented to person, place, and time. Normal affect. CARDIOVASCULAR MEDICATIONS: Reviewed. LABORATORY DATA: Reviewed. TELEMETRY DATA: Normal sinus rhythm. ASSESSMENT 1. Left knee effusion. 2. Knee pain. 3. Abnormal electrocardiogram. 4. Hypertension. 5. Hyperlipidemia. 6. Atypical chest pain. RECOMMENDATIONS: Lexiscan stress test was done today which showed normal perfusion. Echocardiogram results pending. Continue current cardiovascular medications. Patient is cleared for any procedure from a cardiovascular standpoint and will be at low risk for cardiovascular events perioperatively. Thank you for this consult. We will continue to follow. Job#: [id number]
[2018-08-02] MEDS: HYDROCODONE/APAP 5MG-325MG TAB PO PRN ×2 (03:01→22:16)
[2018-08-02 06:16] LABS: BASOPHILS % 0.4 % (0.0-1.0); EOSINOPHILS # (AUTO) 0.2 (0.0-0.4); EOSINOPHILS % 2.1 % (0.0-6.0); HEMATOCRIT 31.8 % (34.2-44.1); HEMOGLOBIN 10.3 g/dL (12.0-16.0); LYMPHOCYTES % 26.2 % (18.0-39.1); MEAN CORPUSCULAR HEMOGLOBIN 28.1 pg (28-32); MEAN CORPUSCULAR HGB CONC 32.4 g/dL (31-35); MEAN CORPUSCULAR VOLUME 86.6 fL (81-99); MONOCYTES # (AUTO) 0.6 (0.2-0.8); NEUTROPHILS # (AUTO) 4.6 (2.1-6.9); NEUTROPHILS % 59.4 % (38.7-80.0); PLATELET COUNT 253 x10e3/uL (140-360); RED BLOOD COUNT 3.67 x10e6/uL (3.6-5.1); RED CELL DISTRIBUTION WIDTH 13.9 % (11.7-14.4)
[2018-08-02 06:34] LABS: ALANINE AMINOTRANSFERASE 26 IU/L (0-55); ALBUMIN 2.5 g/dL (3.5-5.0); ALBUMIN/GLOBULIN RATIO 0.7 (0.8-2.0); ALKALINE PHOSPHATASE 56 IU/L (40-150); ANION GAP 11.4 mmol/L (8-16); BLOOD UREA NITROGEN 9 mg/dL (7-26); BUN/CREATININE RATIO 16 (6-25); CALCIUM 8.4 mg/dL (8.4-10.2); CARBON DIOXIDE 26 mmol/L (22-29); CHLORIDE 101 mmol/L (98-107); CREATININE, SERUM 0.55 mg/dL (0.57-1.11); EST GLOMERULAR FILTRATION RATE > 60 ML/MIN (60-); GLUCOSE 109 mg/dL (74-118); POTASSIUM 3.4 mmol/L (3.5-5.1); SODIUM 135 mmol/L (136-145)
--- NOTE | 2018-08-02 06:51 | NUR ---
REPORT GIVEN TO ONCOMING NURSE,WALKING ROUNDS DONE.PT RESTING IN BED WITH NO S/S OF DISTRESS.
--- NOTE | 2018-08-02 07:03 | NUR ---
Received patient and walking rounds complete. Patient awake resting in bed at this time. No signs of distress noted. Bed in lowest position, wheels locked, side rails up x2, call light in reach. Will continue to monitor.
--- NOTE | 2018-08-02 07:46 | NUR ---
PROGRESS NOTES - ORTHOPEDICS Patient seen and examined resting comfortably at bedside. Denies any fevers or chills, numbness, paresthesias or loss of distal motor function. Pain in left knee has improved and is able to range more comfortably. No acute events overnightj VS T 98.7 HR 64 RR 18 BP 134/74 O2 Sat 96% Left Knee - Compressive dressing in place AROM 0-90 Motor: + EHL, FHL, TA, G/S Sensation grossly intact Pulses + DP, Post tib Compartments soft Negative calf tenderness WBC 7.78 Hgb 10.3/ Hct 31.8 Knee Aspiration Culture: No Growth to date at 3 days Crystals: negative 58 year old F with Left Knee Pain and Effusion Likely due to inflammatory arthropathy. Continue anti-inflammatories WBAT DVT Prophylaxis PT - WBAT No acute orthopedic intervention required at this time. May follow up in office in 2 weeks. If patients status worsens, please call PRN Thank you for the consultation DO [facility]
[2018-08-02] MEDS: METOPROLOL SUCCINATE 50 MG TAB XL PO SCH (08:01)
[2018-08-02] MEDS: SUCRALFATE 1 GM TAB PO SCH ×2 (08:01→17:14)
[2018-08-02] MEDS: PANTOPRAZOLE SOD 40 MG TABEC PO SCH (08:01)
--- NOTE | 2018-08-02 08:56 | NUR ---
Removed patients Johnson. Catheter tip intact. Due to void.
--- NOTE | 2018-08-02 10:00 | NUR ---
Patient A/O X3, even respirations nonlabored on room air. No signs of distress at this time. Left knee wrapped with BRANDIE compression bandage. Last bowel movement Wednesday, bowel sounds active. Moderate assist with ambulation. Left Knee pain 10/19. Will continue to monitor.
[2018-08-02] MEDS: ACETAMINOPHEN 325 MG TAB PO PRN (10:55)
--- NOTE | 2018-08-02 12:07 | NUR ---
Paged Dr. Kang regarding patient wanting to stay another day.
--- NOTE | 2018-08-02 12:55 | NUR ---
Paged Dr. Valerio regarding patient ambulatory status.
--- NOTE | 2018-08-02 13:33 | Cardiology Report ---
DATE OF STUDY: August 01, 2018 NUCLEAR STRESS TEST PROCEDURE: Rest/stress single isotope SPECT imaging with pharmacologic stress and gated SPECT imaging. Pharmacologic stress testing was performed with regadenoson per protocol. The heart rate was 62 beats per minute at rest and increased to 91 beats per minute during the regadenoson infusion. The resting blood pressure was 148/79 and increased to 176/94 mmHg, which is a normal response. The resting electrocardiogram demonstrated normal sinus rhythm. There were no ST segment changes suggestive of myocardial ischemia. Myocardial perfusion imaging was performed at rest following the injection of 11 mCi of tetrofosmin. At peak pharmacologic effect, the patient was injected with 31 mCi of tetrofosmin and gated poststress tomographic imaging was performed. FINDINGS: The overall quality of the study is fair. Left ventricle is noted to be normal size on the rest and stress studies. SPECT images demonstrate homogeneous tracer distribution throughout the myocardium. Gated SPECT imaging reveals normal myocardial thickening and wall motion. The left ventricular ejection fraction was calculated to be greater than 70%. IMPRESSION: Myocardial perfusion imaging was normal. Overall left ventricular systolic function was normal without regional wall motion abnormalities. Job#: [id number] EV
[2018-08-02] MEDS ORDERED: METHYLPREDNISOLONE ACETATE 40 MG/ML VIAL IM ONE (14:15)
[2018-08-02] MEDS ORDERED: LIDOCAINE HCL 1% LOCAL INJ 20 ML VIAL INJ ONE (14:15)
--- NOTE | 2018-08-02 14:22 | NUR ---
Spoke with Dr. Martínez regarding patient left knee. Orders put in.
--- NOTE | 2018-08-02 15:08 | NUR ---
Patient has voided since Johnson removal.
[2018-08-02] MEDS: CEFTRIAXONE SOD 1 GM/NS 50 ML 50 ML IV SCH (15:17)
--- NOTE | 2018-08-02 17:23 | NUR ---
Informed Dr. Kang of patient's plan of care at this time. Patient to discharge in the morning when he rounds. Dr. Martínez to inject the knee this evening
--- NOTE | 2018-08-02 18:48 | NUR ---
Left knee aspiration performed and steroid injection given by Dr. Martínez.
--- NOTE | 2018-08-02 18:59 | NUR ---
PROCEDURE NOTE Patient seen and examined and continues to have pain in left knee which is improving however she continues to have trouble ambulating. Denies fevers or chills Due to her continued pain and thought that her knee is painful secondary to inflammatory arthropathy a therapeutic injection was considered. After receiving consent, the left knee was prepped and a needle were introduced into the knee under sterile condition. The knee was aspirated with 60 cc of more viscous cloudy synovial fluid compared to her prior aspiration. This sample was sent to the lab again for evaluation for cell count, crystals, culture, gram stain and glucose. 40 mg of Depomedrol and 9 cc of 1% Lidocaine was introduced into the knee. The leg was cleaned and a compressive dressing was placed over the knee. The patient tolerated the procedure well. Will keep the patient NPO except meds after midnight. DO [facility]
[2018-08-02 19:16] LABS: BODY FLUID APPEARANCE TURBID; BODY FLUID COLOR YELLOW; BODY FLUID TYPE SYNOVIAL
[2018-08-02 19:17] LABS: RBC,BODY FLUID 16137 cells/uL; WBC,BODY FLUID 28017 cells/uL
[2018-08-02 19:46] LABS: LYMPHOCYTES,BODY FLUID 10 %; MONO/MACROPHG,BODY FLUID 2 %; NEUTROPHILS,BODY FLUID 88 %
--- NOTE | 2018-08-02 20:30 | NUR ---
paged and spoke to dr navarro to notify pt's blood pressure,dr navarro stated to page dr crews
--- NOTE | 2018-08-02 20:38 | NUR ---
PAGED AND SPOKE TO DR JONES(CLEANING CREW MEMBER FOR DR MAC) NOTIFIED PT'S BLOOD PRESSURE,N/O RECEIVED,ORDER READ BACK AND VERIFIED.
[2018-08-02] MEDS: SIMVASTATIN 20 MG TAB PO SCH (21:36)
[2018-08-02] MEDS: HYDRALAZINE HCL 20 MG/ML VIAL IV PRN (21:37)
[2018-08-03 00:25] VITALS: BP 179/79
[2018-08-03] MEDS: HYDRALAZINE HCL 20 MG/ML VIAL IV PRN (02:04)
[2018-08-03] MEDS: HYDROCODONE/APAP 5MG-325MG TAB PO PRN ×2 (05:11→12:11)
[2018-08-03 05:20] VITALS: BP 127/61
--- NOTE | 2018-08-03 07:02 | NUR ---
Received patient mid fowlers position, side rails upx3, call light within reach. AAOX3 to time, person, place. Respirations even and unlabored. BRANDIE wrap to left knee clean, dry, and intact. Instructed patient to use call light for assistance. Voiced understanding. Will continue to monitor.
--- NOTE | 2018-08-03 07:28 | NUR ---
REPORT GIVEN TO ONCOMING NURSE,WALKING ROUNDS MADE.PT RESTING IN BED WITH NO S/S OF DISTRESS.
[2018-08-03 08:10] VITALS: BP 140/63
[2018-08-03 08:58] VITALS: BP 140/63
[2018-08-03] MEDS: METOPROLOL SUCCINATE 50 MG TAB XL PO SCH (09:40)
[2018-08-03] MEDS: SUCRALFATE 1 GM TAB PO SCH ×2 (09:40→16:24)
[2018-08-03] MEDS: PANTOPRAZOLE SOD 40 MG TABEC PO SCH (09:40)
[2018-08-03 12:00] VITALS: BP 129/61
[2018-08-03] MEDS ORDERED: POTASSIUM CHLORIDE 20 MEQ TAB CR PO NR (12:45)
--- NOTE | 2018-08-03 12:51 | NUR ---
aware of T 99.6 oral . No new orders
--- NOTE | 2018-08-03 13:01 | NUR ---
WAS ABLE TO PROVIDE ROLLING WALKER GOT GREEN SHEET SIGNED BY , PUT WITH ORDER AND FACESHEET IN PACU FOR FILING PURPOSES. [phone] SPOKE WITH DORY TO GET PROVIDER FOR HOME HEALTH. HE STATES [facility] IS IN NETWORK AND ACCEPTING PATIENTS AT THIS TIME. PHONE NUMBER IS [phone] FAX NUMBER IS [phone]. FAXED CLINICALS AND WAS ABLE TO GET INITIATED FOR PT TO BE SEEN TOMORROW.
[2018-08-03] MEDS: CEFTRIAXONE SOD 1 GM/NS 50 ML 50 ML IV SCH (15:30)
[2018-08-03 16:53] VITALS: BP 102/55
--- NOTE | 2018-08-03 18:39 | NUR ---
Left and Right AC IV discontinued. No signs of infiltration noted. 2x2 gauze and tape placed on left and right AC. Taken via wheelchair by PCT to personal car. Accompanied by daughter. AAOX4 to time, person, place, situation. Respirations even and unlabored. Discharge instructions taken with patient. No rx available at this time. All personal belongings taken with patient.
--- NOTE | 2018-08-03 22:25 | NUR ---
PROGRESS NOTE - ORTHOPEDICS Patient seen & examined resting comfortably at bedside in the afternoon. Patient feeling better. Pain in left knee has decreased. Denies fevers or chills. VS at 12:00 99.6 HR 63 RR 16 BP 129/61 O2 Sat 97% on RA Left Knee Improved range of motion and strength No pain with PROM Motor: + EHL, FHL, TA, G/S Sensation grossly intact Pulses + DP, Post tib Compartments soft Negative calf tenderness WBC 7.78, Hgb 10.3 Hct 31.8 Aspiration 08/02/18 Negative gram stain, Culture No growth to date Cell count 28K, Diff 88% PMN, Glucose 83 (Serum 98), Aspiration 07/30/18 Negative gram stain, Culture No growth to date at 4 days 58 year old female with left knee pain and effusion Likely secondary to inflammatory arthropathy. She presents a mixed picture, however does demonstrate improvements on anti-inflammatories. She has been informed to return for evaluation or contact me if she has fevers, chills or if her knee worsens. At this time, she should continue anti-inflammatories PT- WBAT Follow up in my office in 2 weeks or sooner if her symptoms worsen. Patient is aware and amendable to plan. All questions answered. Soledad Martínez, DO [facility]
== END 2018-08-03 18:39 | disposition home health service (06) | DRG 546 ==
LOC: ER 18:36 → ERHOLD 07-30 02:25 → MED/SURG 07-30 03:35 → OBSVTOIN 07-31 09:30 → INTOOBSV 07-31 09:30
PROVIDERS: ADMIT Internal Medicine; ATTEND Internal Medicine
PROC: 0S9D3ZX Drainage of Left Knee Joint, Percutaneous Approach, Diagnostic (ICD-10-PCS; principal; 2018-07-30)
PROC: 0S9D3ZX Drainage of Left Knee Joint, Percutaneous Approach, Diagnostic (ICD-10-PCS; 2018-08-02)
PROC: 3E0U33Z Introduction of Anti-inflammatory into Joints, Percutaneous Approach (ICD-10-PCS; 2018-08-02)
PROC: 3E0U3BZ Introduction of Anesthetic Agent into Joints, Percutaneous Approach (ICD-10-PCS; 2018-08-02)
DX: M06.9 Rheumatoid arthritis, unspecified (principal); N39.0 Urinary tract infection, site not specified; E87.1 Hypo-osmolality and hyponatremia; I10 Essential (primary) hypertension; E78.5 Hyperlipidemia, unspecified; R07.89 Other chest pain; D63.8 Anemia in other chronic diseases classified elsewhere; K76.0 Fatty (change of) liver, not elsewhere classified; M71.22 Synovial cyst of popliteal space [Baker], left knee; Z28.21 Immunization not carried out because of patient refusal
CPT/HCPCS: 36415; 51700; 70450; 71045; 71275; 74174; 78452; 80053; 81001; 82550; 82553; 82784; 82945; 82948; 83036; 83518; 83605; 83735; 83880; 84484; 84550; 85025; 85379; 85610; 85651; 85730; 86140; 86200; 86431; 86850; 86900; 87040; 87070; 87086; 87205; 87400; 89051; 89060; 93005; 93017; 93306; 93971; 96361; 96374; 96375; 97139; 99284; A9502; G0378; J0360; J0696; J1030; J1885; J2001; J2405; J2920; J7030; J7050; Q9967

== ENCOUNTER 2025-03-24 08:24 | Inpatient (IN) | payer MEDICARE, OTHER ==
[~2025-03-24] VITALS: Ht 152.4 cm; Wt 77.1 kg
[~2025-03-24 08:24] MED LIST changes: +CRESTOR10 MG PO; +PANTOPRAZOLE SO40 MG PO; +SUCRALFATE1 GM PO
[2025-03-24 09:12] LABS: BASOPHILS % 0.2 % (0.0-1.0); EOSINOPHILS % 1.3 % (0.0-6.0); LYMPHOCYTES % 16.2 % (18.0-39.1); MONOCYTES % 6.6 % (4.4-11.3); NEUTROPHILS % 75.3 % (38.7-80.0); RED CELL DISTRIBUTION WIDTH 14.4 % (11.7-14.4)
[2025-03-24] MEDS: ASPIRIN 81 MG CHEW TAB PO ONE (09:25)
[2025-03-24 09:29] VITALS: TEMP 98.7
[2025-03-24 09:36] LABS: CORONAVIRUS COVID-19 AG NEGATIVE (NEGATIVE)
[2025-03-24 09:44] LABS: EST GLOMERULAR FILTRATION RATE 96.0 ML/MIN (>=60)
[2025-03-24 10:15] LABS: INR 0.83
[2025-03-24] MEDS ORDERED: NITROGLYCERIN 0.4 MG SUBL SL PRN (10:45)
[2025-03-24] MEDS: ACETAMINOPHEN 325 MG TAB PO ONE (12:12)
[2025-03-24 12:13] VITALS: PULSE 58; RESP 16
[2025-03-24 13:30] VITALS: BP 141/72; PULSE 62; RESP 20; TEMP 97.8; O2SAT 99
[2025-03-24] MEDS: ENOXAPARIN INJ 80 MG/0.8 ML SYR SC SCH (15:11)
[2025-03-24 15:35] VITALS: BP 141/72; PULSE 62; RESP 20; TEMP 97.8; O2SAT 99
[2025-03-24] MEDS: PANTOPRAZOLE SOD 40 MG TABEC PO SCH (16:29)
[2025-03-24] MEDS: METOPROLOL TARTRATE 25 MG TAB PO SCH (16:29)
[2025-03-24 16:46] VITALS: BP 159/97; PULSE 54; RESP 19; TEMP 97.9; O2SAT 99
[2025-03-24] MEDS ORDERED: AMLODIPINE-OLM1 EAC3 (17:44)
[2025-03-24] MEDS ORDERED: ATORVASTATIN CA80 MG PO (17:44)
[2025-03-24] MEDS ORDERED: METOPROLOL SUCC25 MG PO (17:44)
[2025-03-24] MEDS ORDERED: DICLOFENAC SOD100 GM EXT (17:44)
[2025-03-24] MEDS ORDERED: GABAPENTIN300 MG PO (17:44)
[2025-03-24] MEDS: Morphine 2mg Syringe 2 MG/ML SYR IV PRN (19:50)
[2025-03-24] MEDS: CRESTOR 10MG PO SCH (19:51)
[2025-03-24 20:00] VITALS: BP 145/83; PULSE 54; RESP 18; TEMP 97.9; O2SAT 98
[2025-03-25 04:00] VITALS: BP 151/74; PULSE 50; RESP 18; TEMP 98.4; O2SAT 97
[2025-03-25 05:58] LABS: BASOPHILS % 0.6 % (0.0-1.0); EOSINOPHILS % 7.5 % (0.0-6.0); LYMPHOCYTES % 33.5 % (18.0-39.1); MONOCYTES % 9.7 % (4.4-11.3); NEUTROPHILS % 47.7 % (38.7-80.0); RED CELL DISTRIBUTION WIDTH 14.3 % (11.7-14.4)
[2025-03-25 06:24] LABS: CHOL/HDL RATIO 4.8 (3.0-3.6); EST GLOMERULAR FILTRATION RATE 98.0 ML/MIN (>=60); LDL CHOLESTEROL 151.0 MG/DL (60-130)
[2025-03-25 08:37] VITALS: BP 171/77; PULSE 56; RESP 19; TEMP 98.8; O2SAT 100
[2025-03-25 09:00] VITALS: BP 171/77; PULSE 56; RESP 19; TEMP 98.8; O2SAT 100
[2025-03-25] MEDS: ASPIRIN 81 MG ENTERIC COATED PO SCH (09:02)
[2025-03-25] MEDS: METOPROLOL SUCCINATE 25 MG TAB XL PO SCH (09:03)
[2025-03-25] MEDS: PANTOPRAZOLE SOD 40 MG TABEC PO SCH (09:04)
[2025-03-25] MEDS: AMLODIPINE BESYLATE 10 MG TAB PO SCH (09:04)
[2025-03-25 11:43] VITALS: BP 106/69; PULSE 57; RESP 20; TEMP 98.6; O2SAT 98
[2025-03-25] MEDS: SODIUM CHLORIDE 0.9% 1000ML 1,000 ML IV SCH (14:48)
[2025-03-25 16:26] VITALS: BP 153/88; PULSE 60; RESP 19; TEMP 98; O2SAT 98
[2025-03-25] MEDS ORDERED: LOPERAMIDE HCL 2 MG/15 ML UDC PO PRN (18:45)
[2025-03-25 20:00] VITALS: BP 187/72; PULSE 60; RESP 17; TEMP 98.1; O2SAT 99
[2025-03-26] VITALS (15 sets, daily range): BP systolic 109–187; BP diastolic 66–99; PULSE 53–73; RESP 12–19; TEMP 97.7–98.7; O2SAT 99–100
[2025-03-26 06:36] LABS: BASOPHILS % 0.3 % (0.0-1.0); EOSINOPHILS % 4.7 % (0.0-6.0); LYMPHOCYTES % 24.0 % (18.0-39.1); MONOCYTES % 8.6 % (4.4-11.3); NEUTROPHILS % 60.7 % (38.7-80.0); RED CELL DISTRIBUTION WIDTH 14.3 % (11.7-14.4)
[2025-03-26] MEDS ORDERED: HEPARIN SOD (PORCINE) 1000 UNIT/ML 30ML ONE (07:10)
[2025-03-26] MEDS ORDERED: VERAPAMIL HCL 2.5 MG/ML 2 ML VIAL ONE (07:10)
[2025-03-26] MEDS ORDERED: NITROGLYCERIN/D5W 200 MCG/ML 250 ML ONE (07:11)
[2025-03-26] MEDS ORDERED: IOPAMIDOL 370 MG/ML 100 ML INFUS..BTL INJ ONE (07:11)
[2025-03-26] MEDS ORDERED: HEPARIN SOD/SOD CHLORIDE 2,000 ML ONE (07:11)
[2025-03-26] MEDS ORDERED: SODIUM CHLORIDE 0.9% 1000ML 1,000 ML ONE (07:11)
[2025-03-26] MEDS ORDERED: LIDOCAINE HCL 2% LOCAL 20 ML VIAL ONE (07:11)
[2025-03-26] MEDS ORDERED: MIDAZOLAM HCL 2 MG/2 ML VIAL ONE (07:12)
[2025-03-26] MEDS ORDERED: FENTANYL CITRATE/PF 100MCG/2 ML INJ ONE (07:12)
[2025-03-26 07:14] LABS: EST GLOMERULAR FILTRATION RATE 97.0 ML/MIN (>=60)
[2025-03-26] MEDS: AMLODIPINE BESYLATE 5 MG TAB PO SCH (08:24)
[2025-03-26] MEDS ORDERED: BIVALRIUDIN 250 MG/VIAL VIAL IV ONE (10:11)
[2025-03-26] MEDS ORDERED: PRASUGREL 10 MG TAB ONE (10:48)
[2025-03-26] MEDS ORDERED: ASPIRIN 325 MG TAB ONE (10:55)
[2025-03-26] MEDS ORDERED: SODIUM CHLORIDE 0.9% 100 ML ONE (10:58)
[2025-03-26] MEDS: LOSARTAN POTASSIUM 25 MG TAB PO SCH (17:51)
[2025-03-26] MEDS: ONDANSETRON HCL INJ 2MG/ML 2ML 2 MG/ML VIAL IV PRN (20:48)
[2025-03-27 03:36] VITALS: BP 161/84; PULSE 63; RESP 18; TEMP 98.6; O2SAT 95
[2025-03-27 05:34] LABS: BASOPHILS % 0.4 % (0.0-1.0); EOSINOPHILS % 3.9 % (0.0-6.0); LYMPHOCYTES % 24.4 % (18.0-39.1); MONOCYTES % 9.1 % (4.4-11.3); NEUTROPHILS % 60.9 % (38.7-80.0); RED CELL DISTRIBUTION WIDTH 14.0 % (11.7-14.4)
[2025-03-27 06:06] LABS: EST GLOMERULAR FILTRATION RATE 100.0 ML/MIN (>=60)
[2025-03-27 07:45] VITALS: BP 137/69; PULSE 73; RESP 17; TEMP 98.5; O2SAT 98
[2025-03-27] MEDS: PRASUGREL 10 MG TAB PO SCH (09:44)
[2025-03-27 12:00] VITALS: BP 145/66; PULSE 69; RESP 18; TEMP 98.9; O2SAT 97
[2025-03-27] MEDS ORDERED: COZAAR25 MG PO (14:42)
[2025-03-27] MEDS ORDERED: EFFIENT10 MG PO (14:42)
[2025-03-27] MEDS ORDERED: TOPROL XL25 MG PO (14:42)
[2025-03-27] MEDS ORDERED: NORVASC5 MG PO (14:42)
[2025-03-27 16:00] VITALS: BP 146/80; PULSE 17; RESP 18; TEMP 98.6; O2SAT 100
[2025-03-27 16:42] VITALS: BP 148/82
== END 2025-03-27 19:02 | disposition home or self-care (01) | DRG 322 ==
LOC: ER 08:39 → ERHOLD 10:33 → MED/SURG2 13:13
PROVIDERS: ADMIT Internal Medicine; ATTEND Internal Medicine
PROC: B2111ZZ Fluoroscopy of Multiple Coronary Arteries using Low Osmolar Contrast (ICD-10-PCS; principal; 2025-03-26)
PROC: 027034Z Dilation of Coronary Artery, One Artery with Drug-eluting Intraluminal Device, Percutaneous Approach (ICD-10-PCS; 2025-03-26)
PROC: B240ZZ3 Ultrasonography of Single Coronary Artery, Intravascular (ICD-10-PCS; 2025-03-26)
PROC: B41F1ZZ Fluoroscopy of Right Lower Extremity Arteries using Low Osmolar Contrast (ICD-10-PCS; 2025-03-26)
DX: I25.110 Atherosclerotic heart disease of native coronary artery with unstable angina pectoris (principal); I10 Essential (primary) hypertension; E78.5 Hyperlipidemia, unspecified; R94.31 Abnormal electrocardiogram [ECG] [EKG]; K76.0 Fatty (change of) liver, not elsewhere classified; M17.0 Bilateral primary osteoarthritis of knee; M16.0 Bilateral primary osteoarthritis of hip; K21.9 Gastro-esophageal reflux disease without esophagitis; E66.9 Obesity, unspecified; Z68.33 Body mass index [BMI] 33.0-33.9, adult; Z11.52 Encounter for screening for COVID-19; Z79.899 Other long term (current) drug therapy; Z79.02 Long term (current) use of antithrombotics/antiplatelets
CPT/HCPCS: 36415; 71045; 76937; 80053; 80061; 82550; 83735; 84484; 85025; 85610; 85730; 92920; 92928; 92978; 93005; 93306; 93458; 99152; 99153; 99284; C1725; C1753; C1760; C1766; C1769; C1874; C1887; J0583; J0690; J1644; J1650; J2003; J2250; J2270; J2405; J2470; J7030; J7050; Q9967

== ENCOUNTER 2025-04-24 06:39 | Inpatient (IN) | payer MEDICARE ==
[~2025-04-24] VITALS: Ht 152.4 cm; Wt 76.2 kg
[~2025-04-24 06:39] MED LIST changes: +AMLODIPINE-OLM1 EAC3; +ATORVASTATIN CA80 MG PO; +COZAAR25 MG PO; +DICLOFENAC SOD100 GM EXT; +EFFIENT10 MG PO; +GABAPENTIN300 MG PO; +HYDRALAZINE HCL25 MG PO; +MECLIZINE HCL12.5 MG PO; +METOPROLOL SUCC25 MG PO; +NORVASC5 MG PO; +ONDANSETRON ODT4 MG PO; +TOPROL XL25 MG PO
[2025-04-24 06:49] VITALS: TEMP 97.9
[2025-04-24 07:08] LABS: BASOPHILS % 0.2 % (0.0-1.0); EOSINOPHILS % 0.4 % (0.0-6.0); LYMPHOCYTES % 4.5 % (18.0-39.1); MONOCYTES % 1.3 % (4.4-11.3); NEUTROPHILS % 93.2 % (38.7-80.0); RED CELL DISTRIBUTION WIDTH 13.0 % (11.7-14.4)
[2025-04-24 07:35] LABS: INR 0.93
[2025-04-24 07:39] LABS: EST GLOMERULAR FILTRATION RATE 82 ML/MIN (>=60)
[2025-04-24] MEDS: ONDANSETRON HCL INJ 2MG/ML 2ML 2 MG/ML VIAL IV STA (08:14)
[2025-04-24] MEDS: SODIUM CHLORIDE 0.9% 1000ML 1,000 ML IV STA (08:14)
[2025-04-24] MEDS: CLOPIDOGREL BISULFATE 75 MG TAB PO ONE (08:14)
[2025-04-24] MEDS ORDERED: PRASUGREL 10 MG TAB PO ONE ×2 (09:30→09:45)
[2025-04-24 15:00] VITALS: PULSE 67; RESP 18
[2025-04-24 18:11] VITALS: BP 136/65; PULSE 56; RESP 18; TEMP 98.3; O2SAT 100
[2025-04-24] MEDS ORDERED: ALPRAZOLAM0.5 M1 PO (18:30)
[2025-04-24] MEDS ORDERED: ASPIRIN CHEW81 MG PO (18:30)
[2025-04-24] MEDS ORDERED: ULTRAM 50MG50 MG PO (18:35)
[2025-04-24 19:25] VITALS: BP 139/61; PULSE 62; RESP 20; TEMP 97.5; O2SAT 100
[2025-04-24 20:00] VITALS: BP 139/61; PULSE 62; RESP 20; TEMP 97.5; O2SAT 100
[2025-04-24] MEDS: ACETAMINOPHEN 325 MG TAB PO PRN (20:29)
[2025-04-24 23:27] VITALS: BP 118/53; PULSE 54; RESP 17; TEMP 98.9; O2SAT 96
[2025-04-25] VITALS (7 sets, daily range): BP systolic 119–176; BP diastolic 63–80; PULSE 57–63; RESP 18–19; TEMP 97.9–98.9; O2SAT 98–100
[2025-04-25 05:22] LABS: BASOPHILS % 0.3 % (0.0-1.0); EOSINOPHILS % 0.6 % (0.0-6.0); LYMPHOCYTES % 11.4 % (18.0-39.1); MONOCYTES % 5.1 % (4.4-11.3); NEUTROPHILS % 80.9 % (38.7-80.0); RED CELL DISTRIBUTION WIDTH 13.2 % (11.7-14.4)
[2025-04-25 05:53] LABS: CHOL/HDL RATIO 4.4 (3.0-3.6); EST GLOMERULAR FILTRATION RATE 96.0 ML/MIN (>=60); LDL CHOLESTEROL 123.0 MG/DL (60-130)
[2025-04-25] MEDS: CLOPIDOGREL BISULFATE 75 MG TAB PO SCH (08:59)
[2025-04-25] MEDS: ASPIRIN 81 MG ENTERIC COATED PO SCH (08:59)
[2025-04-25 09:25] LABS: LYMPHOCYTES % (MANUAL) 10 % (19-48); MONOCYTES % (MANUAL) 3 % (3.4-9.0); NEUTROPHILS % (MANUAL) 86 % (40-74); PLATELET ESTIMATE SLIGHTLY DECREASED; PLATELET MORPHOLOGY COMMENT NORMAL; RBC MORPHOLOGY COMMENT NORMAL; REACTIVE LYMPHOCYTES 1
[2025-04-25] MEDS ORDERED: LIDOCAINE HCL 2% LOCAL 20 ML VIAL ONE (10:27)
[2025-04-25] MEDS ORDERED: SODIUM CHLORIDE 0.9% 500ML 500 ML ONE (10:27)
[2025-04-25] MEDS ORDERED: GENTAMICIN SULFATE 40 MG/ML 2 ML VIAL ONE (10:27)
[2025-04-25] MEDS ORDERED: Vancomycin IV 1 GM VIAL ONE (10:27)
[2025-04-25] MEDS ORDERED: SODIUM CHLORIDE 0.9% 1000ML 2,000 ML ONE (10:28)
[2025-04-25] MEDS ORDERED: IOPAMIDOL 610MG/1ML 300 MG/ML VIAL IV ONE (10:28)
[2025-04-25] MEDS ORDERED: SODIUM CHLORIDE 0.9% 250ML 0 ML ONE (10:28)
[2025-04-25] MEDS ORDERED: SODIUM BICARBONATE 8.4% SYRING 50 ML ONE (10:28)
[2025-04-25] MEDS ORDERED: SODIUM CHLORIDE 0.9% 100 ML ONE (10:30)
[2025-04-25] MEDS ORDERED: MIDAZOLAM HCL 2 MG/2 ML VIAL ONE ×2 (11:18→11:25)
[2025-04-25] MEDS ORDERED: FENTANYL CITRATE/PF 100MCG/2 ML INJ ONE (11:19)
[2025-04-25] MEDS: ACETAMINOPHEN/CODEINE 300MG - 30MG TAB PO PRN (13:06)
[2025-04-25] MEDS: DOXYCYCLINE HYCLATE TABLET 100 MG TAB PO SCH (16:11)
[2025-04-25] MEDS: ONDANSETRON HCL INJ 2MG/ML 2ML 2 MG/ML VIAL IV PRN (17:10)
[2025-04-25] MEDS: Morphine 2mg Syringe 2 MG/ML SYR IV PRN (17:11)
[2025-04-25] MEDS: CRESTOR 10MG PO SCH (21:04)
[2025-04-25] MEDS: HYDROCODONE/APAP 5MG-325MG TAB PO PRN (22:56)
[2025-04-26 00:29] VITALS: BP 143/64
[2025-04-26 03:27] VITALS: BP 148/73; PULSE 68; RESP 18; TEMP 99.3; O2SAT 100
[2025-04-26 05:14] LABS: BASOPHILS % 0.4 % (0.0-1.0); EOSINOPHILS % 3.2 % (0.0-6.0); LYMPHOCYTES % 20.4 % (18.0-39.1); MONOCYTES % 11.2 % (4.4-11.3); NEUTROPHILS % 63.3 % (38.7-80.0); RED CELL DISTRIBUTION WIDTH 12.9 % (11.7-14.4)
[2025-04-26 05:46] LABS: EST GLOMERULAR FILTRATION RATE 97.0 ML/MIN (>=60); PHOSPHORUS 3.5 MG/DL (2.3-4.7)
[2025-04-26 07:00] VITALS: BP 156/77; PULSE 63; RESP 20; TEMP 97.6; O2SAT 100
[2025-04-26] MEDS ORDERED: MINOCYCLINE HC100 M1 PO (09:20)
[2025-04-26] MEDS ORDERED: KETOROLAC TROME10 MG PO (09:20)
[2025-04-26] MEDS ORDERED: ULTRAM 50MG50 MG PO (09:27)
[2025-04-26] MEDS ORDERED: CLOPIDOGREL75 MG PO (09:29)
[2025-04-26] MEDS: GABAPENTIN 300 MG CAP PO SCH (09:34)
[2025-04-26] MEDS: METOPROLOL SUCCINATE 25 MG TAB XL PO SCH (09:35)
[2025-04-26 12:00] VITALS: BP 153/76; PULSE 65; RESP 18; TEMP 98.4; O2SAT 100
== END 2025-04-26 14:15 | disposition home or self-care (01) | DRG 243 ==
LOC: ER 06:43 → ERHOLD 08:17 → MED/SURG 16:00
PROVIDERS: ADMIT Internal Medicine; ATTEND Internal Medicine
PROC: 0JH606Z Insertion of Pacemaker, Dual Chamber into Chest Subcutaneous Tissue and Fascia, Open Approach (ICD-10-PCS; principal; 2025-04-25)
PROC: 02H63JZ Insertion of Pacemaker Lead into Right Atrium, Percutaneous Approach (ICD-10-PCS; 2025-04-25)
PROC: 02HK3JZ Insertion of Pacemaker Lead into Right Ventricle, Percutaneous Approach (ICD-10-PCS; 2025-04-25)
DX: I49.5 Sick sinus syndrome (principal); I45.2 Bifascicular block; I49.8 Other specified cardiac arrhythmias; I49.1 Atrial premature depolarization; I11.9 Hypertensive heart disease without heart failure; I25.119 Atherosclerotic heart disease of native coronary artery with unspecified angina pectoris; Z95.5 Presence of coronary angioplasty implant and graft; E78.00 Pure hypercholesterolemia, unspecified; I65.23 Occlusion and stenosis of bilateral carotid arteries; K21.9 Gastro-esophageal reflux disease without esophagitis; K76.0 Fatty (change of) liver, not elsewhere classified; M54.2 Cervicalgia; R55 Syncope and collapse; S09.90XA Unspecified injury of head, initial encounter; W18.39XA Other fall on same level, initial encounter; Y92.009 Unspecified place in unspecified non-institutional (private) residence as the place of occurrence of the external cause; M19.91 Primary osteoarthritis, unspecified site; Z79.899 Other long term (current) drug therapy; Z79.82 Long term (current) use of aspirin; Z79.02 Long term (current) use of antithrombotics/antiplatelets
CPT/HCPCS: 33208; 33228; 36415; 70450; 71045; 72125; 75820; 80048; 80053; 80061; 82550; 82948; 83036; 83735; 83880; 84100; 84484; 85025; 85610; 85730; 93005; 93880; 99152; 99153; 99284; C1769; J0690; J1580; J2003; J2250; J2270; J2405; J2470; J3373; J7030; J7040; J7050